=== PATIENT | male | born 2000 | race Caucasian/White ===

== ENCOUNTER → 2022-05-16 12:44 | Outpatient (CLI) | payer OTHER, SELFPAY ==
--- NOTE | ~2022-05-16 | CT_ITS ---
EXAMINATION: CT brain & sinus wo con DATE: 05/16/2022 13:11 INDICATION: Headache, unspecified. TECHNIQUE: Computed tomography (CT) of the head and paranasal sinuses was performed without intraveno us contrast. The mA was adjusted according to patient size. Iterative reconstruction technique was em ployed. The dose-length product was 674.51 mGy-cm. COMPARISON: None FINDINGS: CT HEAD: There is no intracranial hemorrhage, acute infarction, or abnormal intracranial mass lesion. The ventricles are normal in size. The mastoid air cells are normal. The orbits are normal. CT SINUSES: There is a carious lesion of tooth 14. The frontal sinuses are hypoplastic. The sphenoid, ethmoid, and right maxillary sinuses are clear. There is mild mucosal thickening in left maxillary s inus. There is leftward deviation of the nasal septum. The ostiomeatal units are patent. The middle t urbinates are paradoxical anteriorly. IMPRESSION: 1. Normal brain. 2. Carious lesion of tooth 14. 3. Mild mucosal thickening in left maxillary sinus. 4. Leftward deviation of the nasal septum. Reviewed, dictated and finalized at location A.
== END ==
PROVIDERS: PCP Family Medicine; Visit Provider Family Medicine
DX: R51.9 Headache, unspecified (principal); J34.2 Deviated nasal septum
CPT/HCPCS: 70450; 70486

== ENCOUNTER 2023-10-13 12:57 | Outpatient (CLI) | payer OTHER, SELFPAY ==
--- NOTE | ~2023-10-13 | XR_ITS ---
EXAMINATION: XR ribs RT 2V w CXR 2V DATE: 10/13/2023 13:17 INDICATION: Upright anterior right chest pain. TECHNIQUE: Frontal and lateral views of the chest and 2 views on 3 radiographs of the right ribs were obtained. COMPARISON: Chest 2 views 09/03/2011 FINDINGS: CHEST TWO VIEWS: There is no pneumonia, pleural effusion, or pneumothorax. The heart size is normal. RIGHT RIBS: There is a fracture of right fifth rib. IMPRESSION: 1. Fracture of right fifth rib. Reviewed, dictated and finalized at location A.
== END 2023-10-13 12:58 | disposition home or self-care (01) ==
PROVIDERS: PCP Family Medicine; Visit Provider Family Medicine
DX: S22.31XA Fracture of one rib, right side, initial encounter for closed fracture (principal); X58.XXXA Exposure to other specified factors, initial encounter
CPT/HCPCS: 71046; 71100

== ENCOUNTER 2023-11-03 09:35 | Outpatient (CLI) | payer OTHER, SELFPAY ==
--- NOTE | ~2023-11-03 | CT_ITS ---
EXAMINATION: CT brain wo con DATE: 11/03/2023 09:51 INDICATION: Head injury. Headache. TECHNIQUE: Computed tomography (CT) of the head was performed without intravenous contrast. The mA wa s adjusted according to patient size. Iterative reconstruction technique was employed. The dose-lengt h product was 524.62 mGy-cm. COMPARISON: Head CT 05/16/2022 FINDINGS: There is no intracranial hemorrhage, acute infarction, or abnormal intracranial mass lesion . The ventricles are normal in size. The orbits are normal. The paranasal sinuses are clear. The mast oid air cells are normal. IMPRESSION: 1. Normal brain. Reviewed, dictated and finalized at location A. IMPRESSION: 1. Normal brain.
== END 2023-11-03 09:36 ==
PROVIDERS: PCP Family Medicine; Visit Provider Family Medicine
DX: S09.90XA Unspecified injury of head, initial encounter (principal); X58.XXXA Exposure to other specified factors, initial encounter
CPT/HCPCS: 70450

== ENCOUNTER 2023-12-21 14:06 | Outpatient (CLI) | payer OTHER, SELFPAY ==
--- NOTE | ~2023-12-21 | XR_ITS ---
XR chest 2V DATE: 12/21/2023 14:19 INDICATION: Pleural chest pain. History of pneumothorax. TECHNIQUE: PA and lateral views COMPARISON: 10/13/2023 2 view chest FINDINGS: Bilateral hyperinflation. No pulmonary infiltrate or consolidation, pleural effusion or pul monary vascular congestion or pneumothorax is detected. Normal heart size. No hilar or mediastinal enlargement. Old healed fracture lateral aspect of right fifth rib. IMPRESSION: Bilateral hyperinflation; no pneumothorax is evident Reviewed, dictated and finalized at location B.
== END 2023-12-21 14:07 | disposition home or self-care (01) ==
LOC: ANHIMG 14:07
PROVIDERS: PCP Family Medicine; Visit Provider Family Medicine
DX: R07.81 Pleurodynia (principal)
CPT/HCPCS: 71046

== ENCOUNTER 2024-01-29 12:33 | Outpatient (CLI) | payer OTHER, SELFPAY ==
--- NOTE | 2024-01-29 16:32 | WPDPFTINT ---
PFT Procedure Performed PFT Procedure Performed Spirometry with Pre/Post Bronchodilator Plethysmography (Lung Vol) Diffusing Cap (DLCO) Flow Vol Loop PFT Interpretation This is a pulmonary function test with pre and post-bronchodilator spirometry, plethysmography and diffusing capacity. The test was performed and results interpreted in accordance with the 2019 and 2005 ATS/ERS Task Force guidelines respectively using the Global Lung Function Initiative-2012 reference equations. Patient demonstrated good effort and cooperation. Reproducibility criteria were met. The quality of the pre bronchodilator spirometry maneuver was Grade A and post bronchodilator spirometry maneuver was Grade A. Findings: Spirometry: The contour the inspiratory and expiratory flow tracing are normal. The pre bronchodilator FVC is 5.91 L, 103% predicted. The pre bronchodilator FEV1 is 4.95 L, 103% predicted. The pre bronchodilator FEV1: FVC ratio is 84%. The post bronchodilator FVC is 5.65 L, representing a 4% decrease. The post bronchodilator FEV1 is 4.99 L, representing 1% increase. The post bronchodilator FEV1: FVC ratio is 88%. Plethysmography: The total lung capacity 6.83 L, 97% predicted. The functional residual capacity is 3.22 L, 94% predicted. The residual volume is 0.92 L, 60% predicted. Diffusing capacity: The diffusing capacity unadjusted for hemoglobin and carboxyhemoglobin is 32.0, 86% predicted. The diffusing capacity adjusted for alveolar volume is 4.66, 87% predicted. Impression: The spirometry is normal without evidence of an obstructive abnormality. There is no significant improvement after inhaling a single dose of albuterol. The lung volumes are normal. The diffusing capacity is normal. There are no prior studies for comparison
== END 2024-01-29 12:34 | disposition home or self-care (01) ==
LOC: ANHPFT 12:34
PROVIDERS: PCP Family Medicine; Visit Provider Family Medicine
DX: R09.89 Other specified symptoms and signs involving the circulatory and respiratory systems (principal)
CPT/HCPCS: 94060; 94726; 94729

== ENCOUNTER → 2024-10-11 14:42 | Outpatient (CLI) | payer OTHER, SELFPAY ==
--- NOTE | ~2024-10-11 | XR_ITS ---
EXAM: XR thoracic spine 2V DATE: 10/11/2024 15:02 HISTORY: M54.6 - Pain in thoracic spine,no injury . COMPARISON: None available. FINDINGS: Vertebral body alignment intact. Mild spinal asymmetry. Vertebral body heights preserved. No disc space narrowing. No traumatic malalignment or fracture. Visualized lung parenchyma is clear. IMPRESSION: Unremarkable thoracic spine radiograph findings. Reviewed, dictated and finalized at location K.
--- NOTE | ~2024-10-11 | XR_ITS ---
EXAMINATION: XR chest 2V Exam Date/Time: 10/11/2024 14:43 CDT HISTORY: R07.89 - Other chest pain, no cough, no injury Comparison: 12/21/2023. RESULT: Lines, tubes, and devices: Suture line in the left apex. Lungs and pleura: Lung apices are partially excluded from the [id number]. Mild left hilar retract ion. Otherwise clear. Cardiomediastinal silhouette: Stable. Other: No acute osseous or upper abdominal finding. IMPRESSION: No acute cardiopulmonary process. Reviewed, dictated and finalized at location K.
--- OUTSIDE RECORDS SUMMARY | 2024-10-11 16:39 | XMS_ITS | Clinical Summary ---
Author Organization [facility] Address [address] [place] [address] Phone Care Team Providers Care Storage Facility Housekeeper Name Role Phone Provider, None Primary Care Provider Unavailabl e Medications HYDROcodone-yanet taminophen (NORCO) 5-325 MG TabletIndicatio ns:Displaced fracture of shaft of fifth metacarpal bone, right hand, initial encounter for closed fracture Take 1 Tablet by mouth every 6 hours as needed for Moderate or more severe pain. 12 Tablet 09/04/2022 Active Social History Tobacco Use Types Packs/Day Years Used Date Smoking Tobacco: Never Smokeless Tobacco: Never Tobacco Cessation:Counseling Given: Not Answered Alcohol Use Standard Drinks/Week Comments Yes 4 (1 standard drink = 0.6 oz pur e alcohol) Sex and Gender Information Value Date Recorded Sex Assigned at Not on file Legal Sex Male 3:58 PM FOOD SERVICE HOTEL RUNNER Gender Identity Not on file Sexual Orientation Not on file Last Filed Vital Signs Vital Sign Reading Time Taken Comments Blood Pressure 105/58 09/04/2022 6:16 PM FOOD SERVICE HOTEL RUNNER Pulse 60 09/04/2022 6:16 PM FOOD SERVICE HOTEL RUNNER Temperature 36.7 C (98 F) 09/04/2022 4:14 PM FOOD SERVICE HOTEL RUNNER Respiratory Rate 18 09/04/2022 6:16 PM FOOD SERVICE HOTEL RUNNER Oxygen Saturation 97% 09/04/2022 6:16 PM FOOD SERVICE HOTEL RUNNER Inhaled Oxygen Concentration - - Weight 54.4 kg (120 lb) 09/04/2022 4:14 PM FOOD SERVICE HOTEL RUNNER Height 180.3 cm (5' 11 ) 09/04/2022 4:14 PM FOOD SERVICE HOTEL RUNNER Body Mass Index 16.74 09/04/2022 4:14 PM FOOD SERVICE HOTEL RUNNER Plan of Treatment Health Maintenance Due Date Last Done Comments Hepatitis C Virus (HCV) Screening 2000 TdaP Immunization 2000 Hepatitis B Immunization (3 of 3 - 3-dose series) 2000 2000, 2000 Human Papillomavirus (HPV) Immunization (1 - Male 3-dose series) 2015 Meningococcal B Immunization (1 of 2 - Patient Seeks Protection) 2016 Influenza Immunization (#1) 2024 SARS-COV-2 Immunization (1 - 2023- season) 2024 Respiratory Syncytial Virus (RSV) Immunization (Adult) (1 - 1-dose 75+ series) 2075 DTaP/Tdap/Td Immunization Discontinued 2000, 2000 Pneumococcal Immunization Combined Aged Out 2000, 2000 No longer eligible based on patient's age to complete this topic Meningococcal Immunization (ACWY) Aged Out No longer eligible based on patient's age to complete this topic Rotavirus Immunization Aged Out No lo nger eligible based on patient's age to complete this topic Insurance Care Teams Storage Facility Housekeeper Relationship Specialty Start Date End Date Provider, None [place] PCP - General 09/04/22
--- OUTSIDE RECORDS SUMMARY | 2024-10-11 16:39 | XMS_ITS | Referral Summary ---
Author Organization [facility] Address [address] [place] [address] Care Team Providers Care Supervisor Instant Potato Processing Name Role Phone Damion Morris MD Primary Care Provider [phone] Allergies No known active allergies Medications escitalopram (LEXAPRO) 10 mg tablet Take 1 tablet (10 mg total) by mouth daily Active Active Problems Problem Noted Date Diagnosed Date Aftercare following surgery of the respiratory s ystem 04/07/2023 Bradycardia 03/09/2023 Drug induced constipation 03/09/2023 Spontaneous pneumothorax 03/09/2023 Pneumothorax on left 03/04/2023 Anxiety and depression 03/04/2023 Pneumothorax 03/04/2023 Posttraumatic stress disorder 12/31/2012 Social History Tobacco Use Types Packs/Day Years Used Date Smoking Tobacco: Never Social Connection and Isolat ion Panel [NHANES] Answer Date Recorded In a typical week, how many times do you talk on the phone with family, friends, or neighbors? More than three times a week 03/10/2023 How often do you get togethe r with friends or relatives? More than three times a week 03/10/2023 How often do you attend chur ch or tenriism services? Never 03/10/2023 Do you belong to any clubs o r organizations such as shinto groups, unions, fraternal or athletic groups, or school groups? No 03/10/2023 How often do you attend meet ings of the clubs or organizations you belong to? Never 03/10/2023 Are you , , di vorced, , never , or living with a partner? Never 03/10/2023 AUDIT-C Answer Date Recorded Q1: How often do you have a drink containing alc ohol? 2-4 times a month 03/04/2023 Average Number of Drinks Not on file 023 Frequency of Binge Drinking Not on file 09/2022 Overall Financial Resource Strain (CARDIA) Answe r Date Recorded How hard is it for you to pa y for the very basics like food, housing, medical care, and heating? Not very hard 03/10/2023 Hunger Vital Sign Answer Date Recorded Within the past 12 months, y ou worried that your food would run out before you got the money to buy more. Never true 03/10/20 23 Within the past 12 months, t he food you bought just didn't last and you didn't have money to get more. Never true 03/10/2023 PRAPARE - Transportation Answer Date Re corded In the past 12 months, has l ack of transportation kept you from medical appointments or from getting medications? No 03/2023 In the past 12 months, has l ack of transportation kept you from meetings, work, or from getting things needed for daily living? No 03/10/2023 Housing Stability Vital Sign Answer Enrico e Recorded In the last 12 months, was t here a time when you were not able to pay the mortgage or rent on time? No 03/10/2023 In the last 12 months, how many places have you lived? 1 03/10/2023 In the last 12 months, was t here a time when you did not have a steady place to sleep or slept in a nursing home (including now)? No 03/10/2023 Personal Safety Answer Date Recorded Have you ever been in or are you currently in a harmful physical or emotional relationship or is someone making you feel afraid or unsafe? Denies 03/10/2023 Sex and Gender Information Value Date Recorded Sex Assigned at Not on file Legal Sex Male 7:52 PM DIRECTOR COUNSELING BUREAU Gender Identity Not on file Sexual Orientation Not on file Last Filed Vital Signs Vital Sign Reading Time Taken Comments Blood Pressure 100/80 04/07/2023 8:53 AM CDT Pulse 60 04/07/2023 8:53 AM CDT Temperature 36.7 C (98.1 F) 03/13/2023 8:12 AM CDT Respiratory Rate 18 03/13/2023 8:12 AM CDT Oxygen Saturation 98% 03/13/2023 8:12 AM CDT Inhaled Oxygen Concentration - - Weight 56.3 kg (124 lb 1.9 oz) 03/11/2023 9:55 A M CDT Height 180.3 cm (5' 11 ) 03/10/2023 12:25 PM CDT Body Mass Index 17.31 03/10/2023 12:25 PM CDT Plan of Treatment Not on file Insurance [facility] PL[facility] Member Subscriber Plan / Payer (Ef fective 2022-Present) Name:Fausto Winslow Relation to Subscriber:Child Name:GOLDYDA Macedo Date of :1975 (Home) Address: [address] [place] [id number] Payer ID:[id number] (NAIC) Type:[facility] HMO/PPO Address: [address] CHOICE PLUS Advance Directives For more information, please contact: [phone] * Full Code (Latest Code Status on File) Date Activated Date Inactivated Comments 03/09/2023 6:27 PM 03/13/2023 4:51 PM * Full Code Date Activated Date Inactivated Comments 03/07/2023 11:38 PM 03/09/2023 6:19 PM Care Teams Supervisor Instant Potato Processing Relationship Specialty Start Date End Date Damion Morris MD [address] [address] PCP - General Family Medicine 03/03/23
--- OUTSIDE RECORDS SUMMARY | 2024-10-11 16:39 | XMS_ITS | Patient Health Summary ---
Author Organization [facility] Address [address] [place] [address] Care Team Providers Care Helpdesk Analyst Name Role Phone Damion Morris MD Primary Care Provider [phone] Note from [facility],non-owned Affiliates and Associated Physician Practices is amultiple site organization consisting of ambulatory clinics and hospital sitesin [place], [place], [place] and [place]. This disclosure is being madepursuant to the Care Everywhere program and may not contain all information available regarding this patient. Last updated 18.[facility] Allergies No known active allergies Medications * Be aware that medications may not be up to date on this document. Alwaysverify current medications with the patient. * citalopram (CELEXA) 10 MG tablet Take 10 mg by mouth once daily. * omeprazole (PRILOSEC) 20 MG capsule Take 20 mg by mouth 2 times daily. * Loratadine (CLARITIN) 10 MG CAPS Take 10 mg by mouth. * Pediatric Multiple Vit-C-FA (FLINSTONES GUMMIES OMEGA-3 DHA PO) Take 1 Tab by mouth. Active Problems Problem Noted Date Diagnosed Date Vomiting 07/25/2013 Abdominal pain, generalized 07/25/2013 Chest pain 07/25/2013 Regurgitation 07/25/2013 Underweight 07/25/2013 Weight loss 07/25/2013 Social History Tobacco Use Types Packs/Day Years Used Date Smoking Tobacco: Never Assessed Sex and Gender Information Value Date Recorded Sex Assigned at Not on file Gender Identity Not on file Sexual Orientation Not on file Last Filed Vital Signs Vital Sign Reading Time Taken Comments Blood Pressure - - Pulse - - Temperature - - Respiratory Rate - - Oxygen Saturation - - Inhaled Oxygen Concentration - - Weight 36.5 kg (80 lb 9.3 oz) 07/25/2013 1:16 PM HOT WOUND SPRING PRODUCTION SUPERVISOR Height 153.2 cm (5' 0.32 ) 07/25/2013 1:16 PM CS T Body Mass Index 15.57 07/25/2013 1:16 PM HOT WOUND SPRING PRODUCTION SUPERVISOR Procedures * IGA BLOOD(Performed 08/01/2013) Performed for Vomiting, Abdominal pain, generalized, Chest pain, Regurgitation, Underweight, Weightloss * TISSUE TRANSGLUTAMINASE AB IGA(Performed 08/01/2013) Performed for Vomiting, Abdominal pain, generalized, Chest pain, Regurgitation, Underweight, Weightloss Results * TISSUE TRANSGLUTAMINASE AB IGA (08/01/2013 3:59 PM HOT WOUND SPRING PRODUCTION SUPERVISOR) TTG Antibody IgA <2 0 - 3 U/mL [facility] INSURANCE BILL Comment: Negative 0 - 3 Weak Positive 4 - 10 Positive >10 . Tissue Transglutaminase (tTG) has been identified as the endomysial antigen. Studies have demonstr- ated that endomysial IgA antibodies have over 99% specificity for gluten sensitive enteropathy. Blood specimen (specimen) BLOOD SPECIMEN / Unknown 08/01/2013 3:59 PM HOT WOUND SPRING PRODUCTION SUPERVISOR 08/01/2013 5:30 PM HOT WOUND SPRING PRODUCTION SUPERVISOR Narrative Resulting Agency Comment [address] [phone] Bret Church MD LAB - SEROLOGY REY ARREDONDO Performing Organization Address [facility] Co de Phone Number [facility] INSURANCE BILL * (ABNORMAL) IGA BLOOD (08/01/2013 3:59 PM HOT WOUND SPRING PRODUCTION SUPERVISOR) IgA Quantitative 316(H) 77 - 278 mg/dL [facility] INSURANCE BILL Blood specimen (specimen) BLOOD SPECIMEN / Unknown 08/01/2013 3:59 PM HOT WOUND SPRING PRODUCTION SUPERVISOR 08/01/2013 5:30 PM HOT WOUND SPRING PRODUCTION SUPERVISOR Narrative Resulting Agency Comment [address] [id number] Bret Church MD LAB - CHEMISTRY ALYSSA REN [facility] INSURANCE BILL Care Teams Helpdesk Analyst Relationship Specialty Start Date End Date Damion Morris MD PCP - General Family Medicine 12/09/12
--- OUTSIDE RECORDS SUMMARY | 2024-10-11 16:39 | XMS_ITS | Clinical Summary ---
Author Organization [facility] Address [address] [place] [address] Care Team Providers Care Supervisor Drying Name Role Phone Damion Morris MD Primary Care Provider [phone] Allergies No known active allergies Medications escitalopram (LEXAPRO) 10 mg tablet Take 1 tablet (10 mg total) by mouth daily Active Active Problems Problem Noted Date Diagnosed Date Aftercare following surgery of the respiratory s ystem 04/07/2023 Bradycardia 03/09/2023 Drug induced constipation 03/09/2023 Spontaneous pneumothorax 03/09/2023 Pneumothorax on left 03/04/2023 Anxiety and depression 03/04/2023 Pneumothorax 03/04/2023 Posttraumatic stress disorder 12/31/2012 Surgical History Surgery Date Site/Laterality Comments WRIST FRACTURE SURGERY LUNG SURGERY 03/10/2023 Thoracoscopic left upper lobe wedge resection and talc pleurodesis Medical History Medical History Date Comments Anxiety Depression Spontaneous pneumothorax Social History Tobacco Use Types Packs/Day Years [...] often do you attend chur ch or religion services? Never 03/10/2023 Do you belong to any clubs o r organizations such as sikh groups, unions, fraternal or athletic groups, or [...] place to sleep or slept in a [place] health care facility (including now)? No 03/10/2023 Personal Safety Answer Date Recorded Have you ever been in or are you currently in a harmful physical or emotional relationship or is someone making you feel afraid or unsafe? Denies 03/10/2023 Sex and Gender Information Value Date Recorded Sex Assigned at Not on file Legal Sex Male 7:52 PM MEDICAL ESTHETICIAN Gender Identity Not on file Sexual Orientation Not on file Obstetrics History Last Filed Vital Signs Vital Sign Reading [...] 03/10/2023 12:25 PM CDT Plan of Treatment Health Maintenance Due Date Last Done Comments Depression Screening 2000 Hepatitis C Screening 2000 DTaP/Tdap/Td Vaccine (3 - Tdap) 2011 2000, 2000 Varicella Vaccines (1 of 2 - 13+ 2-dose series) 2013 HPV Vaccines (1 - Male 3-dos e series) 2015 Regular Well Visit/Exam 18-64 2018 Influenza Vaccine (#1) 2024 Hepatitis B Screening Completed 2000 , 2000 Pneumococcal vaccine <65 Aged Out 001, 2000 No longer eligible based on patient's age to complete this topic Insurance [facility] CHOICE PLUS [facility] CHOICE PLUS [facility] CHOICE PLUS Member Subscriber Plan / Payer (Ef fective 2022-Present) Name:Fausto Winslow Relation to Subscriber:Child Name:DA WINSLOW Date of :1975 (Home) Address: [address] [place] [id number] Payer ID:[id number] (NAIC) Type:[facility] HMO/PPO Address: [address] CHOICE PLUS Advance Directives For more information, please contact: [phone] * Full Code (Latest Code Status on File) Date Activated Date Inactivated Comments 03/09/2023 6:27 PM 03/13/2023 4:51 PM * Full Code Date Activated Date Inactivated Comments 03/07/2023 11:38 PM 03/09/2023 6:19 PM Care Teams Supervisor Drying Relationship Specialty Start Date End Date Damion Morris MD [address] [address] PCP - General Family Medicine 03/03/23
--- OUTSIDE RECORDS SUMMARY | 2024-10-11 16:39 | XMS_ITS | Referral Summary ---
Author Organization [facility] Address [address] [facility] [place] [address] Care Team Providers Care Dental Equipment Installer And Servicer Name Role Phone Damion Morris MD Primary Care Provider [phone] Source Comments [facility],non-owned Affiliates and Associated Physician Practices is amultiple site organization consisting of ambulatory clinics and hospital sitesin [place], [place], [place] and [place]. This disclosure is being madepursuant to the Care Everywhere program and may not contain all information available regarding this patient. Last updated 18.[facility] [employer] Allergies No known active allergies Medications * Be aware that medications may not be up to date on this document. Alwaysverify current medications with the patient. Medication Sig Dispensed Refills Start Date End Date Status citalopram (CELEXA) 10 MG tablet Take 10 mg by mouth once daily. Active omeprazole (PRILOSEC) 20 MG capsule Take 20 mg by mouth 2 times daily. Active Loratadine (CLARITIN) 10 MG CAPS Take 10 mg by mouth. Active Pediatric Multiple Vit-C-FA (FLINSTONES GUMMIES OMEGA-3 DHA PO) Take 1 Tab by mouth. Active Active Problems Problem Noted Date Diagnosed [...] (80 lb 9.3 oz) 07/25/2013 1:16 PM LASER CUTTER Height 153.2 cm (5' 0.32 ) 07/25/2013 1:16 PM CS T Body Mass Index 15.57 07/25/2013 1:16 PM LASER CUTTER Plan of Treatment Not on file Care Teams Dental Equipment Installer And Servicer Relationship Specialty Start Date End Date Damion Morris MD PCP - General Family Medicine 12/09/12
--- OUTSIDE RECORDS SUMMARY | 2024-10-11 16:39 | XMS_ITS | Clinical Summary ---
Author Organization [facility] Address [address] [place] [address] Care Team Providers Care Gastroenterology Technician Name Role Phone Damion Morris MD Primary Care Provider [phone] Source Comments [facility],non-owned Affiliates and Associated Physician Practices is amultiple site organization consisting of ambulatory clinics and hospital sitesin [place], [place], [place] and [place]. This disclosure is being madepursuant to the Care Everywhere program and may not contain all information available regarding this patient. Last updated 18.[facility] [employer] Allergies No known active allergies Medications * [...] Regurgitation 07/25/2013 Underweight 07/25/2013 Weight loss 07/25/2013 Family History Medical History Relation Name Comments Pancreatitis Maternal Grandmother Diabetes Mother Relation Name Status Comments Maternal Grandmother Mother Social History Tobacco Use Types Packs/Day Years [...] (80 lb 9.3 oz) 07/25/2013 1:16 PM SOC ANALYST Height 153.2 cm (5' 0.32 ) 07/25/2013 1:16 PM CS T Body Mass Index 15.57 07/25/2013 1:16 PM SOC ANALYST Plan of Treatment Health Maintenance Due Date Last Done Comments HIV SCREENING 2015 HPV VACCINE (1 - Male 3-dose series) 2015 HEPATITIS C SCREENING 06/06/2018 DTAP/TDAP/TD VACCINES (1 - Tdap) 2019 HEPATITIS B VACCINE (1 of 3 - 19+ 3-dose series) 2019 COVID-19 VACCINE (1 - 2023-2 5 season) 2024 INFLUENZA VACCINE (#1) 2024 DEPRESSION SCREENING 08/03/2024 ZOSTER VACCINE (1 of 2) 2050 HIB VACCINE Aged Out No longer eligi ble based on patient's age to complete this topic MENINGOCOCCAL (Group B) VACCINE Aged Out No longer eligible based on patient's age to complete this topic MENINGOCOCCAL VACCINE Aged Out No lindsay miguel eligible based on patient's age to complete this topic PNEUMOCOCCAL VACCINE Aged Out No long er eligible based on patient's age to complete this topic Care Teams Gastroenterology Technician Relationship Specialty Start Date End Date Damion Morris MD PCP - General Family Medicine 12/09/12
== END ==
LOC: EXPTRAD 14:43
PROVIDERS: PCP Nurse Practitioner Family; Visit Provider Nurse Practitioner Family
DX: R07.89 Other chest pain (principal); M54.6 Pain in thoracic spine
CPT/HCPCS: 71046; 72070

== ENCOUNTER 2025-03-14 15:13 | Outpatient (CLI) | payer OTHER, SELFPAY ==
--- NOTE | ~2025-03-14 | XR_ITS ---
CHEST RADIOGRAPH, PA AND LATERAL CLINICAL HISTORY: R07.81 - Pleurodynia, SOB . COMPARISON: 10/11/2024 TECHNIQUE: PA and lateral views of the chest. FINDINGS The cardiomediastinal silhouette is unremarkable. The lungs are clear. IMPRESSION: No focal infiltrate or effusion. Reviewed, dictated and finalized at location A.
--- OUTSIDE RECORDS SUMMARY | 2025-03-14 15:34 | XMS_ITS | Clinical Summary ---
Author Organization [facility] Address [address] [place] [address] Care Team Providers Care Commercial Underwriter Name Role Phone Damion Morris MD Primary Care Provider [phone] Allergies No known active allergies Medications escitalopram [...] Date Smoking Tobacco: Never Social Connection and Isolation Panel Answer Date Recorded In a typical week, how many times do you talk on the phone with family, friends, or neighbors? More than three times a week 03/10/2023 How often do you get togethe r with friends or relatives? More than three times a week 03/10/2023 How often do you attend chur ch or roman catholic services? Never 03/10/2023 Do you belong to any clubs o r organizations such as sabianist groups, unions, fraternal or athletic groups, or [...] place to sleep or slept in a residential (including now)? No 03/10/2023 Personal Safety Answer Date Recorded Have you ever been in or are you currently in a harmful physical or emotional relationship or is someone making you feel afraid or unsafe? 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 Gender Identity Not on file Sexual Orientation [...] A M CDT Height 180.3 cm (5' 11) 03/10/2023 12:25 PM CDT Body Mass Index [...] Well Visit/Exam 18-64 2018 Influenza Vaccine (#1) 2025 Hepatitis B Screening Completed 2000 , 2000 Pneumococcal vaccine <65 Aged Out 001, 2000 No longer eligible based on patient's age to complete this topic Insurance [facility] CHOICE PLUS [facility] CHOICE PLUS [facility] CHOICE PLUS Member Subscriber Plan / Payer (Ef fective 2022-Present) Name:Fausto Winslow Relation to Subscriber:Child Name:DA WINSLOW Date of :1975 (Home) Address: [address] [place] [id number] Payer ID:[id number] (NAIC) Type:[facility] HMO/PPO Address: [address] CHOICE PLUS Advance Directives For more information, please contact: [phone] * Full Code (Latest Code Status on File) Date Activated Date Inactivated Comments 03/09/2023 6:27 PM 03/13/2023 4:51 PM * Full Code Date Activated Date Inactivated Comments 03/07/2023 11:38 PM 03/09/2023 6:19 PM Care Teams Commercial Underwriter Relationship Specialty Start Date End Date Damion Morris MD [address] [id number] PCP - General Family Medicine 03/03/23
--- OUTSIDE RECORDS SUMMARY | 2025-03-14 15:34 | XMS_ITS | Patient Health Record ---
Author Organization [facility] [place] [facility] Address [address] [facility] [address] [place] [address] Care Team Providers Care Education Diagnostician Name Role Phone Leydi Dudley Unavailable [phone] Reason For Referral No Information Medications Medication SIG (Take, Route, Frequency, Duration) Notes Start Date End Date Status FLUoxetine HCl 20 MG Oral 12/18/2023 Active HYDROcodone-Acetaminophen 5-325 MG Oral 12/18/2023 Active ARIPiprazole 2 MG Oral 12/18/2023 A ctive buPROPion HCl ER (XL) 150 MG 1 tablet in the morning Orally Once a day; Duration: 90 days Active Escitalopram Oxalate 10 MG Oral 12/18/2023 Active Sertraline HCl 50 MG Oral 12/18/2023 Active Encounters Encounter Location Date Provider Diagnosis [facility] [address] [facility] [address] [place] [address] 03/18/2024 Leydi Dudley Plan Of Treatment No Information Insurance Providers Payer Name Payer Address Payer Phone Subscriber Number Group Number Insured Name Patient Relationship to Insured Coverage Start Date Coverage End Date [facility] [address] [place] [phone] [id number] LUIS WINSLOW Self - patient is the insured Medical (General) History Surgical History Surgery Date(Month/Year) Myringotomy tube placement Procedure on lung ([id number]) pneumothor ax 03/03/2023
--- OUTSIDE RECORDS SUMMARY | 2025-03-14 15:34 | XMS_ITS ---
Author Organization [facility] Address [address] [place] [address] Care Team Providers Care Assembler Show Motor Name Role Phone Leydi Dudley Unavailable [phone] REASON FOR VISIT Follow Up Visit Encounters Encounter Location Date Provider Diagnosis [facility] [employer] [facility] [address] [facility] [address] [place] [address] 03/18/2024 Leydi Dudley Plan Of Treatment No Information Progress Notes * LUIS WINSLOWDOB:2000 ([age] yo M)Acc No.[id number]:03/18/2024 Patient: LUIS FABIAN Provider: RAHAT MCNEIL :2000 A ge:23 Y S ex:Male Date:03/18/2024 Address:[address] [place], [place] [id number] Subjective: * Chief Complaints: * 1 . Follow Up Visit. * Medical History: Objective: * Vitals: Assessment: Plan: * Treatment: * Billing Information: * Visit Code: * Procedure Codes: * Electronic signature of RAHAT Vuong on 03/14/2025 at 03:33 PM CDT Sign off status: Pending * Provider: RAHAT MCNEIL Date: 03/18/2024 Generated for Carol ng/Leonides/eTransmitting on: 0 03/14/2025 03:33 PM CDT
--- OUTSIDE RECORDS SUMMARY | 2025-03-14 15:34 | XMS_ITS | Clinical Summary ---
Author Organization [facility] Address [address] [place] [address] Care Team Providers Care Coffee Plantation Worker Name Role Phone Damion Morris MD Primary Care Provider [phone] Source Comments [facility],non-owned Affiliates and Associated Physician Practices is amultiple site organization consisting of ambulatory clinics and hospital sitesin [place], [place], [place] and [place]. This disclosure is being madepursuant to the Care Everywhere program and may not contain all information available regarding this patient. Last updated 18.[facility] Allergies No known active allergies Medications * Be aware that medications may not be up to date on this document. Alwaysverify current medications with the patient. 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 Gender Identity Not on file Sexual Orientation Not on file Last Filed Vital Signs Vital Sign Reading Time Taken Comments Blood Pressure - - Pulse - - Temperature - - Respiratory Rate - - Oxygen Saturation - - Inhaled Oxygen Concentration - - Weight 36.5 kg (80 lb 9.3 oz) 07/25/2013 1:16 PM PETROLEUM PRODUCTION ENGINEER Height 153.2 cm (5' 0.32) 07/25/2013 1:16 PM CS T Body Mass Index 15.57 07/25/2013 1:16 PM PETROLEUM PRODUCTION ENGINEER Plan of Treatment Health Maintenance Due Date Last Done Comments HIV SCREENING 2015 HPV VACCINE (1 - Male 3-dose series) 2015 HEPATITIS C SCREENING 06/06/2018 DTAP/TDAP/TD VACCINES (1 - Tdap) 2019 HEPATITIS B VACCINE (1 of 3 - 19+ 3-dose series) 2019 COVID-19 VACCINE (1 - 2023-2 5 season) 2024 DEPRESSION SCREENING 08/03/2024 INFLUENZA VACCINE (#1) 2025 ZOSTER VACCINE (1 of 2) 2050 HIB VACCINE Aged Out No longer eligi ble based on patient's age to complete this topic MENINGOCOCCAL (Group B) VACC INE SHARED DECISION-MAKING Aged Out No longer eligibl e based on patient's age to complete this topic MENINGOCOCCAL GROUPS A/C/Y/W VACCINE Aged Out No longer eligible b ased on patient's age to complete this topic PNEUMOCOCCAL VACCINE Aged Out No long er eligible based on patient's age to complete this topic Insurance [facility] Care Teams Coffee Plantation Worker Relationship Specialty Start Date End Date Damion Morris MD PCP - General Family Medicine 12/09/12
--- OUTSIDE RECORDS SUMMARY | 2025-03-14 15:34 | XMS_ITS ---
Author Organization [facility] Address [address] [place] [address] Care Team Providers Care Direct Marketing Executive Name Role Phone Leydi Dudley Unavailable [phone] Encounters Encounter Location Date Provider Diagnosis [facility] [address] [place] [address] 01/22/2024 Leydi Dudley Plan Of Treatment No Information Progress Notes * LUIS WINSLOWDOB:2000 ([age] yo M)Acc No.[id number]:01/22/2024 Patient: LUIS FABIAN Provider: RAHAT MCNEIL :2000 A ge:23 Y S ex:Male Date:01/22/2024 Address:[address] [place], [place] [id number] Subjective: * Chief Complaints: * * Medical History: Objective: * Vitals: Assessment: Plan: * Treatment: * Billing Information: * Visit Code: * Procedure Codes: * Electronic signature of RAHAT Vuong on 03/14/2025 at 03:33 PM CDT Sign off status: Pending * Provider: RAHAT MCNEIL Date: 01/22/2024 Generated for Carol mera/Leonides/eTransmitting on: 03/14/2025 03:33 PM CDT
--- OUTSIDE RECORDS SUMMARY | 2025-03-14 15:34 | XMS_ITS | Clinical Summary ---
Author Organization [facility] Address [address] [place] [address] Phone Care Team Providers Care Activities Director Scouting Name Role Phone Provider, None Primary Care [...] on file Legal Sex Male 3:58 PM DOCENT COORDINATOR Gender Identity Not on file Sexual Orientation Not on file Last Filed Vital Signs Vital Sign Reading Time Taken Comments Blood Pressure 105/58 09/04/2022 6:16 PM DOCENT COORDINATOR Pulse 60 09/04/2022 6:16 PM DOCENT COORDINATOR Temperature 36.7 C (98 F) 09/04/2022 4:14 PM DOCENT COORDINATOR Respiratory Rate 18 09/04/2022 6:16 PM DOCENT COORDINATOR Oxygen Saturation 97% 09/04/2022 6:16 PM DOCENT COORDINATOR Inhaled Oxygen Concentration - - Weight 54.4 kg (120 lb) 09/04/2022 4:14 PM DOCENT COORDINATOR Height 180.3 cm (5' 11) 09/04/2022 4:14 PM DOCENT COORDINATOR Body Mass Index 16.74 09/04/2022 4:14 PM DOCENT COORDINATOR Plan of Treatment Health Maintenance Due Date Last Done Comments Hepatitis C Virus (HCV) Screening 2000 TdaP Immunization 2000 Hepatitis B Immunization (3 of 3 - 3-dose series) 2000 2000, 2000 Human Papillomavirus (HPV) Immunization (1 - Male 3-dose series) 2015 SARS-COV-2 Immunization (1 - 2023- season) 2024 Influenza Immunization (#1) 2025 Respiratory Syncytial Virus (RSV) Immunization (Adult) (1 [...] to complete this topic Insurance Care Teams Activities Director Scouting Relationship Specialty Start Date End Date Provider, None [place] PCP - General 09/04/22
== END 2025-03-14 15:14 | disposition home or self-care (01) ==
LOC: ANHIMG 15:16
PROVIDERS: PCP Nurse Practitioner Family; Visit Provider Family Medicine
DX: R07.81 Pleurodynia (principal)
CPT/HCPCS: 71046